=== PATIENT | male | born 1935 | race African-American/Black ===

== ENCOUNTER 2018-04-08 17:11 | Inpatient (IN) | payer MEDICARE, MEDICAID ==
--- NOTE | 2018-04-08 18:15 | PDOC.FPRHP ---
- History of Present Illness Chief Complaint: SOB History of Present Illness: This is an 83 yo M here for a CC of SOB and cough. Patient was transferred from the [place] ER. Per ER notes, patient reports a 2 week hx of nasal congestion, bilateral ear congesttion, nonproductive cough, mild SOB. During exam here patient denies cough. Patient reports the SOB is both at rest and w/ exertion. Patient states the SOB has gotten progressively worse of the last couple of weeks. Patient states he has been unable to lie flat on his back. He has to sit up in order to sleep. Patient denies chest pain, palpitations, fever/chills, NVD, rash or other symptoms. Patient denies recent travel or sick contacts. Endorses chronic BLE edema, no new changes. ED Course: CXR showed RLL infiltrate, pleural fluid Pt given: lovenox 1mg/kg subcutaneous, rocephin 1 g IV, transdermal nitro, 500mg azithromycin, 40mg lasix IV, 2.5mg albuterol sulfate - Allergies/Adverse Reactions Allergies Allergy/AdvReac Type Severity Reaction Status Date / Time No Known Allergies Allergy Verified 07/07/16 17:16 - Home Medications Medication Instructions Recorded Confirmed Type Lisinopril 2.5 mg PO DAILY 12/31/15 07/07/16 History Aspirin [Aspirin Chewable Tablet] 81 mg PO DAILY #0 tab 01/01/16 07/07/16 Rx Carvedilol [Coreg] 3.125 mg PO BID-WM #0 tab 01/01/16 07/07/16 Rx Furosemide [Lasix] 20 mg PO DAILY #0 tab 01/01/16 07/07/16 Rx metFORMIN HCl 500 mg PO BID-WM #0 tab 01/01/16 07/07/16 Rx Ascorbic Acid [Vitamin C] 500 mg PO BID tab 07/06/16 07/07/16 Rx Ferrous Gluconate [Fergon] 324 mg PO BID-WM tab 07/06/16 07/07/16 Rx Pantoprazole [Protonix] 40 mg PO DAILY tab 07/06/16 07/07/16 Rx Tamsulosin HCl [Flomax] 0.4 mg PO QAM cap 07/06/16 07/07/16 Rx traMADol HCl [Ultram] 100 mg PO Q6HR tab 07/06/16 07/07/16 Rx - History PMHx: chronic back pain, DMII, HTN, CHF PSHx: cataract, hernia repair, right hip SX FHx: non contributory Social: drinks socially, denies drug or tobacco use; patient lives in an apartment by himself w/ HH - Review of Systems General: reports: fatigue. denies: fever/chills, weight/appetite/sleep changes , night sweats Eyes: denies: eye pain, vision changes ENT: reports: nasal congestion, rhinorrhea Respiratory: reports: cough, congestion, shortness of breath, exercise intolerance Cardiovascular: reports: edema, paroxysmal nocturnal dyspnea, orthopnea. denies : chest pain, palpitation Gastrointestinal: denies: nausea, vomiting, diarrhea, constipation, abdominal pain, GI bleeding Genitourinary: denies: incontinence, dysuria, polyuria Skin: denies: rashes, lesions Neurological: denies: weakness - Vital signs BP: 129/90 HR: 103 RR: 18 Tmax: 98 Pox: 98% on RA Wt: 107kg - Physical Exam Constitutional: NAD, awake, alert and oriented, well developed HEENT: normocephalic and atraumatic, PERRLA, EOMI, grossly normal vision, grossly normal hearing, MMM Neck: supple, FROM, no JVD Chest: no-tender to palpation, no lesions Heart: RRR, normal S1/S2, no murmurs/rubs/gallops, pulses present -Heart: 1+ BLE edema Lungs: CTAB, no respiratory distress, good air movement, no rales/rhonchi, no wheezing, no retractions Abdomen: soft, non-tender, bowel sounds present, no masses/distention Musculoskeletal: normal structure, normal tone, ROM grossly normal -Musculoskeletal: 1+ pitting edema to the shins bilaterally Neurological: no focal deficit Skin: no rash/lesions, capillary refill <2 seconds Psychiatric: normal mood and affect FMR H&P: Results - Labs Lab results: Laboratory Results - last 24 hr 04/08/18 04/08/18 18:02 18:02 CK-MB (CK-2) 1.7 Troponin I 0.057 H B-Natriuretic Peptide 2524.8 H - Radiology Interpretation Chest x-ray Status: report reviewed by me (right pleural fluid and basilar infiltrate, atherosclerosis, cardiomegaly) FMR H&P: A/P - Problem List (1) CKD (chronic kidney disease) stage 2, GFR 60-89 ml/min Current Visit: No Status: Acute Code(s): N18.2 - CHRONIC KIDNEY DISEASE, STAGE 2 (MILD) (2) Congestive heart failure Current Visit: No Status: Acute Code(s): I50.9 - HEART FAILURE, UNSPECIFIED (3) Diabetes mellitus Current Visit: No Status: Acute Code(s): E11.9 - TYPE 2 DIABETES MELLITUS WITHOUT COMPLICATIONS Qualifiers: Diabetes mellitus type: type 2 (4) HTN (hypertension) Current Visit: No Status: Acute Code(s): I10 - ESSENTIAL (PRIMARY) HYPERTENSION Qualifiers: Hypertension type: essential hypertension Qualified Code(s): I10 - Essential (primary) hypertension (5) Hip fracture, intertrochanteric Current Visit: No Status: Acute Code(s): S72.143A - DISPLACED INTERTROCHANTERIC FRACTURE OF UNSP FEMUR, INIT (6) Hyperlipidemia Current Visit: No Status: Acute Code(s): E78.5 - HYPERLIPIDEMIA, UNSPECIFIED (7) Elevated troponin Current Visit: Yes Status: Acute Code(s): R74.8 - ABNORMAL LEVELS OF OTHER SERUM ENZYMES (8) Elevated d-dimer Current Visit: Yes Status: Acute Code(s): R79.89 - OTHER SPECIFIED ABNORMAL FINDINGS OF BLOOD CHEMISTRY (9) Total bilirubin, elevated Current Visit: Yes Status: Acute Code(s): R17 - UNSPECIFIED JAUNDICE - Plan CHF exacerbation - BNP 2085.6; baseline 500-700 in Nov 2017 - CXR: right pleural fluid and basilar infiltrate, cardiomegaly and atherosclerosis - Echo in 12/2017 showed EF 10-15%, global hypokinesis, 2/3 diastolic dysfunction , dilated left ventricle and left atrium, mod MR, mild-mod TR, elevated right ventricular pressure - flu pending - Patient given dose of lasix at 1400; will give one time dose now; start PO lasix 04/09 - Strict I/Os, daily weights - Will restart home HF medications including PO lasix and beta pratibha Elevated troponin - trop 0.055, will continue to trend - EKG: nonspecific T wave changes - no active chest pain/palpitations Elevated Tbili - Will obtain direct bili - likely 2/2 hepatic congestion - Will check AM CMP Elevated D-Dimer - D-dimer 3.73 - given lovenox at the ED - Will hold off on imaging for now, if patient becomes tachycardic will consider CTA HFrEF, diastolic dysfunction, present on admission - see plan above DMII - aware, will restart home meds - mild SS; HH & CC diet - Diabetic education CKD stage II - BUN/Cr: 18/1.26, at baseline - Will continue to monitor HTN - aware, will restart home meds HLD - aware, restart home meds Hx of alcohol abuse - ASE protocol initiated DISPO: admit to tele, obs CODE: FULL vte: lovenox diet: CC/HH FMR H&P: Upper Level - Pertinent history 83 yo AAM with PMH known HFrEF (10-15%) with cor pulmonale, DM, HTN, hx EtOH abuse, and CKD2. Presents with 2 wk history of VIERA, cough, congestion, SOB, and orthopnea. Denied CP, fever/chills, or recent travel. States he has chronic leg swelling which has not recently worsened. Was seen in [place] [facility] before transferring to [facility] for admission. [place] [facility]: Labs, EKG, CXR, Therapeutic lovenox, Rocephin 1g, azithromycin 500 mg , Lasix 40 mg, albuterol neb, nitro paste. [facility] ER: BNP, repeat trop, - Pertinent findings Vitals: pulse 95-105, otherwise WNL GEN: NAD, A&Ox4 CV: Tachycardica, regular, no murmur Pulm: CTA-B, normal effort. Ext: 1+ pitting edema bilaterally, swelling equal to midtibia. Labs: D-dimer 3.73, BNP 2085, Trop 0.055, T. Bili 2.4, EKG: rate 102, sinus tachycardia, QTc 471, T-wave inversions V4-V6, occasional PVC on tele monitor. CXR: pulmonary vascular congestion TTE (December 2017) EF 10-15 %, right ventricle pressure 57 mmHg. - Plan Date/Time: 04/08/181813 I, Luis Hamm MD, have evaluated this patient and agree with findings/plan as outlined by internet programmer resident. Pertinent changes/additions are listed here. 1. Acute HFrEF exacerbation: Obs, tele, IV Lasix 40 mg BID, daily weights, strict I&O, consider cardiology consultation for AICD placement, fluid restrict 1500 mL/day. Add metolazone if not diuresing appropriately. Do not suspect pneumonia at this time. Trend troponin x3. 2. Elevated D-dimer: Low suspicion for PE at this time and has already receive 1 dose of therapeutic lovenox. If pulse dose not decreased with diuresis, will order CTA-chest PE protocol. 3. Elevated bilirubin: likely 2/2 hepatic congestion, check direct and total level. 4. HTN: home meds 5. DM: home meds, SSI, ACHS checks. 6. Alcohol abuse: denies daily usage and states he can go weeks without a drink. ASE protocol. Diet: HH, CC, fluid restriction 1500 mL/day PPx: lovenox CODE: FULL Discussed with Dr. Etienne. Addendum - Attending - Attending Attestation Date/Time: 04/08/18 [id number] I personally evaluated the patient and discussed the management with Dr. Mayers I agree with the History, Examination, Assessment and Plan documented above with any addition or exceptions noted below- 83 yo male with h/o DM, HTN, CHFrEF (EF=10-15%) and chronic back pain presented with a 2 week h/o progressive SOB and dry non-productive cough. Denies any chest pain, N/V, diaphoresis. (+)orthopnea (usually sleeps on 2 pillows now using 4 pillows). Denies any fever/chills. PMH/PSH/All/Meds reviewed and agree with resident's documentation. Afebrile VSS. Exam repeated by me and agree with resident's findings. Labs: WBC= 4.0, H/H=15.5/52.2, Rto=009, Na= 139, K=4.4, BUN/Cr=18/1.26 , Hzhg=742, LXL=6689, T bili=2.4, Trop I= 0.057 -> 0.070. CXR- right pleural effusion. EKG- NSR, nonspecific ST changes. A/P: 1) Acute on chronic systolic CHF exacerbation - Place in obs; received lasix in [place] [facility] and here and pt reports feeling much better. Continue coreg and lisinopril. 2) DM - monitor accuchecks. 3) HTN- stable; resume home meds.
[2018-04-08 18:54] LABS: CKMB 1.7 ng/mL (0-6.6)
[2018-04-08] MEDS ORDERED: Dextrose 5% in Water 1,000 ML IV PRN (19:17)
[2018-04-08] MEDS ORDERED: Ondansetron PF 4 MG/2 ML Vial IVP PRN (19:17)
[2018-04-08] MEDS ORDERED: Acetaminophen 650 MG Suppository PR PRN (19:17)
[2018-04-08] MEDS ORDERED: Acetaminophen 325 MG TAB PO PRN (19:17)
[2018-04-08] MEDS ORDERED: HumaLOG 300 UNITS/3 ML VIAL SC PRN (19:17)
[2018-04-08] MEDS ORDERED: Ondansetron ODT 4 MG TAB PO PRN (19:17)
[2018-04-08] MEDS ORDERED: Dextrose 50% Abboject 50 ML SYRINGE SLOW IVP PRN (19:17)
[2018-04-08] MEDS ORDERED: Labetalol HCl 100 MG/20 ML VIAL SLOW IVP PRN (19:42)
[2018-04-08] MEDS ORDERED: Furosemide 40 MG/4 ML VIAL SLOW IVP SCH (19:45)
[2018-04-08] MEDS ORDERED: Furosemide 40 MG/4 ML VIAL ONE (19:55)
[2018-04-08] MEDS ORDERED: Carvedilol 3.125 MG TAB PO SCH (20:00)
[2018-04-08 22:55] VITALS: BMI 26.2
[2018-04-09 03:01] LABS: #Basophils 0.1 thou/uL (0.0-0.2); #Lymphocytes 2.2 thou/uL (1.20-3.40); #Monocytes 0.8 thou/uL (0.11-0.59); #Neutrophils 2.3 thou/uL (1.40-6.50); %Basophils 1.2 % (0.0-1.0); %Eosinophils 0.7 % (0.0-10.0); %Monocytes 14.9 % (0.0-10.0); %Neutrophils 43.3 % (42.0-75.0); Hemoglobin 13.6 g/dL (14.0-18.0); Mean Corpuscular HGB CONC 31.9 g/dL (32.0-36.0); Mean Corpuscular Hemoglobin 24.6 pg (27.0-31.0); Mean Platelet Volume 8.5 fL (7.4-10.4); Platelet Count 151 thou/uL (130-400); RBC Distribution Width 14.7 % (11.5-14.5); Red Blood Cell (RBC) Count 5.55 mill/uL (4.70-6.10); White Blood Cell (WBC) Count 5.4 thou/uL (4.8-10.8)
[2018-04-09 03:31] LABS: ALT (SGPT) 8 U/L (8-55); AST (SGOT) 20 U/L (5-34); Albumin 3.3 g/dL (3.4-4.8); Alkaline Phosphatase 43 U/L (40-150); Anion Gap 14 mmol/L (10-20); BUN (Urea Nitrogen) 18 mg/dL (8.4-25.7); Bilirubin, Total 1.6 mg/dL (0.2-1.2); Calc. Creatinine Clearance 47 mL/min (70-130); Calcium 9.3 mg/dL (7.8-10.44); Carbon Dioxide 25 mmol/L (23-31); Chloride 103 mmol/L (98-107); Estimated GFR-MDRD 56; Globulin 4.3 g/dL (2.4-3.5); Glucose 122 mg/dL (83-110); Potassium 3.6 mmol/L (3.5-5.1); Protein, Total 7.6 g/dL (5.8-8.1); Sodium 138 mmol/L (136-145)
--- NOTE | 2018-04-09 06:33 | PDOC.FM ---
- Subjective Subjective: Mr. Joseph is resting comfortably in bed, he denies SOB or CP. He reports that his legs are frequently swollen and that he regularly stops taking his medications. - Objective Vital Signs & Weight: Vital Signs (12 hours) Temp Pulse Resp BP Pulse Ox 04/09/18 03:32 98.4 F 84 16 116/75 98 04/08/18 22:46 98.2 F 105 H 16 131/87 100 04/08/18 22:10 97.8 F 100 12 132/99 H 97 04/08/18 20:20 97.7 F 103 H 16 145/94 H 97 Weight Weight 86.319 kg I&O: 04/07/18 04/08/18 04/09/18 06:59 06:59 06:59 Output Total 1525 Balance -1525 Result Diagrams: 04/09/18 02:54 04/09/18 02:54 Phys Exam - Physical Examination Constitutional: NAD HEENT: moist MMs Neck: no nodes, no JVD Respiratory: no wheezing, no rales, no rhonchi Cardiovascular: no significant murmur (irregularly irregular rhythm ) Musculoskeletal: pulses present, edema present Neurological: normal sensation, moves all 4 limbs Psychiatric: normal affect Dx/Plan (1) Elevated d-dimer Code(s): R79.89 - OTHER SPECIFIED ABNORMAL FINDINGS OF BLOOD CHEMISTRY Status : Acute (2) Elevated troponin Code(s): R74.8 - ABNORMAL LEVELS OF OTHER SERUM ENZYMES Status: Acute (3) Total bilirubin, elevated Code(s): R17 - UNSPECIFIED JAUNDICE Status: Acute (4) CKD (chronic kidney disease) stage 2, GFR 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 ml/min Code(s): N18.2 - CHRONIC KIDNEY DISEASE, STAGE 2 (MILD) Status: Acute (5) Congestive heart failure Code(s): I50.9 - HEART FAILURE, UNSPECIFIED Status: Acute (6) Diabetes mellitus Code(s): E11.9 - TYPE 2 DIABETES MELLITUS WITHOUT COMPLICATIONS Status: Acute Qualifiers: Diabetes mellitus type: type 2 (7) HTN (hypertension) Code(s): I10 - ESSENTIAL (PRIMARY) HYPERTENSION Status: Acute Qualifiers: Hypertension type: essential hypertension Qualified Code(s): I10 - Essential (primary) hypertension (8) Hyperlipidemia Code(s): E78.5 - HYPERLIPIDEMIA, UNSPECIFIED Status: Acute - Plan Plan: CHF exacerbation - BNP 2085.6; baseline 500-700 in Nov 2017 - CXR: right pleural fluid and basilar infiltrate, cardiomegaly and atherosclerosis - Echo in 12/2017 showed EF 10-15%, global hypokinesis, 2/3 diastolic dysfunction , dilated left ventricle and left atrium, mod MR, mild-mod TR, elevated right ventricular pressure - consider cardiology consult/poss AICD placement - s/p lasix IVPBx2, -1500ml since admission - Strict I/Os, daily weights - restart home HF medications including PO lasix and beta pratibha Elevated troponin - trop 0.055-->.070-->.100, most likely 2/2 increased heart strain - tx lovenox given in ED - EKG: nonspecific T wave changes - no active chest pain/palpitations Elevated Tbili - direct bili also elevated - likely 2/2 hepatic congestion - monitor AM CMP Elevated D-Dimer - D-dimer 3.73 - given tx ovenox at the ED - Will hold off on imaging for now, if patient becomes tachycardic will consider CTA HFrEF, diastolic dysfunction, present on admission - see plan above DMII - aware, will restart home meds - mild SS; HH & CC diet - Diabetic education CKD stage II - BUN/Cr at baseline - Will continue to monitor HTN - aware, will restart home meds HLD - aware, restart home meds Hx of alcohol abuse - ASE protocol initiated DISPO: monitor fluid status CODE: FULL vte: lovenox diet: CC/HH Addendum - Attending - Attending Attestation Date/Time: 04/09/18 1043 I personally evaluated the patient and discussed the management with Dr. Vaca. I agree with the History, Examination, Assessment and Plan documented above with any addition or exceptions noted below. The patient has a reduced EF. Is he open to aicd placement. Will consult cardiology.
[2018-04-09 07:02] LABS: CKMB 1.7 ng/mL (0-6.6)
[2018-04-09] MEDS: Furosemide 40 MG TAB PO SCH (08:53)
[2018-04-09] MEDS: Lisinopril 5 MG TAB PO SCH (08:53)
[2018-04-09] MEDS: Carvedilol 3.125 MG TAB PO SCH ×2 (08:53→16:50)
[2018-04-09] MEDS: Enoxaparin Sodium 40 MG/0.4 ML SYRINGE SC SCH (08:54)
[2018-04-09] MEDS ORDERED: Prevnar 13-Val Conj/PF 0.5 ML SYRINGE IM ONE (09:00)
--- NOTE | 2018-04-09 22:57 | CON ---
DATE OF CONSULTATION: HISTORY OF PRESENT ILLNESS: Liam Joseph is an 83-year-old black male with history of cardiomyopathy. In December 2015, an echocardiogram revealed ejection fraction of 15% to 20%. He was seen by Dr. Mehta during that admission. He never did undergo cardiac catheterization during that admission and the decision was made to treat him medically. He also never returned to the office for followup with Dr. Mehta. Another echocardiogram was performed as an outpatient in December 2017, which revealed an ejection fraction of 10% to 15%. He now is admitted with increased shortness of breath, increased peripheral edema. He has orthopnea and PND. He freely admits that he does not take his medications properly. He denies any chest discomfort. PAST MEDICAL HISTORY: Cardiomyopathy of uncertain etiology, hypertension, diabetes, and hypercholesterolemia. MEDICATIONS: At home include: 1. Carvedilol 3.125 b.i.d. 2. Lisinopril 2.5 daily. 3. Aspirin 81 daily. 4. Furosemide 20 mg daily. 5. Metformin 500 b.i.d. 6. Vitamin C 500 b.i.d. 7. Ferrous gluconate 324 b.i.d. 8. Protonix 40 daily. 9. Flomax 0.4 daily. 10. Tramadol. ALLERGIES: NONE. OPERATIONS: Cataract surgery, right hip surgery, and hernia repair. SOCIAL HISTORY: He does not smoke. He occasionally drinks. FAMILY HISTORY: Unremarkable. REVIEW OF SYSTEMS: A 12-point review of systems is otherwise unremarkable. PHYSICAL EXAMINATION: VITAL SIGNS: Blood pressure 122/78, pulse of 90. HEENT: PERRL. NECK: Supple. CHEST: Clear. CARDIAC: S1 and S2 normal without any S3, S4, or murmurs. ABDOMEN: Normal bowel sounds without any tenderness or organomegaly. EXTREMITIES: Reveals 1+ pretibial edema. NEUROLOGICAL: Grossly intact. SKIN: Warm and dry. LABORATORY DATA: EKG from [facility] revealed normal sinus rhythm with lateral T-wave changes. Echocardiogram today revealed an ejection fraction of 15% to 20 % with severe mitral regurgitation, [id number] tricuspid regurgitation. Troponin I 0.090 and 0.100. Sodium 135, potassium 3.6, chloride 103, carbon dioxide 25, BUN 18, creatinine 1.45. BNP 2524.8. Hemoglobin 13.6, hematocrit 42.7, white count 5400, and platelets 151,000. IMPRESSION: 1. Dilated cardiomyopathy of uncertain etiology. 2. Hypertension. 3. Diabetes. 4. Hypercholesterolemia. 5. Noncompliance with medications. 6. Chronic kidney disease. 7. Demand ischemia. PLAN: The patient will continue to be diuresed. He has had severe left ventricular dysfunction on echocardiograms since at least December 2015. He continues to have low ejection fraction at this time. He does admit that he does not take his medications properly. Electrophysiology will be consulted regarding possibility of defibrillator placement. Job ID: [id number] [facility] MED[facility] CENTERMaddie
--- NOTE | 2018-04-10 06:27 | PDOC.FM ---
- Subjective Subjective: Mr. Joseph is sitting up in bed, he has no SOB or CP. He says no one has told him anything and he wants to go home. - Objective Vital Signs & Weight: Vital Signs (12 hours) Temp Pulse Resp BP Pulse Ox 04/10/18 03:28 98.1 F 86 18 121/82 97 04/09/18 19:45 97.4 F L 93 20 126/87 92 L Weight Weight 88.405 kg I&O: 04/08/18 04/09/18 04/10/18 06:59 06:59 06:59 Intake Total 100 Output Total 1525 625 Balance -1525 -525 Result Diagrams: 04/10/18 06:56 04/10/18 06:56 Phys Exam - Physical Examination Constitutional: NAD HEENT: moist MMs, oral pharynx no lesions Neck: no JVD Respiratory: no wheezing, no rales, no rhonchi, clear to auscultation bilateral Cardiovascular: RRR Musculoskeletal: no edema, pulses present Neurological: moves all 4 limbs Psychiatric: normal affect Skin: no rash Dx/Plan (1) Elevated d-dimer Code(s): R79.89 - OTHER SPECIFIED ABNORMAL FINDINGS OF BLOOD CHEMISTRY Status : Acute (2) Elevated troponin Code(s): R74.8 - ABNORMAL LEVELS OF OTHER SERUM ENZYMES Status: Acute (3) Total bilirubin, elevated Code(s): R17 - UNSPECIFIED JAUNDICE Status: Acute (4) CKD (chronic kidney disease) stage 2, GFR 60-89 ml/min Code(s): N18.2 - CHRONIC KIDNEY DISEASE, STAGE 2 (MILD) Status: Acute (5) Congestive heart failure Code(s): I50.9 - HEART FAILURE, UNSPECIFIED Status: Acute (6) Diabetes mellitus Code(s): E11.9 - TYPE 2 DIABETES MELLITUS WITHOUT COMPLICATIONS Status: Acute Qualifiers: Diabetes mellitus type: type 2 (7) HTN (hypertension) Code(s): I10 - ESSENTIAL (PRIMARY) HYPERTENSION Status: Acute Qualifiers: Hypertension type: essential hypertension Qualified Code(s): I10 - Essential (primary) hypertension (8) Hyperlipidemia Code(s): E78.5 - HYPERLIPIDEMIA, UNSPECIFIED Status: Acute - Plan Plan: CHF exacerbation - BNP 2085.6 on admission; baseline 500-700 in Nov 2017 - CXR: right pleural fluid and basilar infiltrate, cardiomegaly and atherosclerosis - Repeat echo reveals EF of 15-20% - cardiology consulted appreciate recs - EP consulted for poss AICD placement - s/p lasix IVPBx2, -2L since admission - Strict I/Os, daily weights - restart home HF medications including PO lasix and beta pratibha Elevated troponin - downtrended, most likely 2/2 increased heart strain - tx lovenox given in ED - EKG: nonspecific T wave changes - no active chest pain/palpitations Elevated Tbili - direct bili also elevated - likely 2/2 hepatic congestion - monitor AM CMP Elevated D-Dimer - D-dimer 3.73 - given tx lovenox at the ED - Will hold off on imaging for now, if patient becomes tachycardic will consider CTA HFrEF, diastolic dysfunction, present on admission - see plan above DMII - aware, will restart home meds - mild SS; HH & CC diet - Diabetic education CKD stage II - BUN/Cr at baseline - Will continue to monitor HTN - aware, will restart home meds HLD - aware, restart home meds Hx of alcohol abuse - ASE protocol initiated DISPO: monitor fluid status CODE: FULL vte: lovenox diet: CC/HH Addendum - Attending - Attending Attestation Date/Time: 04/10/18 1384 I personally evaluated the patient and discussed the management with Dr. Vaca. I agree with the History, Examination, Assessment and Plan documented above with any addition or exceptions noted below. Pt seen by cardiology who does recommend aicd placement. Consult for EP has been placed. Pt is NPO.
[2018-04-10 07:35] LABS: ALT (SGPT) 11 U/L (8-55); AST (SGOT) 21 U/L (5-34); Albumin 3.3 g/dL (3.4-4.8); Alkaline Phosphatase 42 U/L (40-150); Anion Gap 14 mmol/L (10-20); BUN (Urea Nitrogen) 20 mg/dL (8.4-25.7); Bilirubin, Total 1.5 mg/dL (0.2-1.2); Calc. Creatinine Clearance 50 mL/min (70-130); Calcium 9.2 mg/dL (7.8-10.44); Carbon Dioxide 25 mmol/L (23-31); Chloride 105 mmol/L (98-107); Estimated GFR-MDRD 59; Globulin 4.1 g/dL (2.4-3.5); Glucose 113 mg/dL (83-110); Potassium 3.7 mmol/L (3.5-5.1); Protein, Total 7.4 g/dL (5.8-8.1); Sodium 140 mmol/L (136-145)
[2018-04-10 08:03] LABS: Hemoglobin A1c 6.7 % (4.0-6.0)
[2018-04-10 08:59] LABS: Band 1 % (5-11); Eosinophils 4 % (0-10); Lymphocytes 41 % (21-51); MDiff Complete? YES; Mean Corpuscular HGB CONC 32.4 g/dL (32.0-36.0); Mean Corpuscular Hemoglobin 25.2 pg (27.0-31.0); Mean Corpuscular Volume 77.9 fL (78.0-98.0); Mean Platelet Volume 8.9 fL (7.4-10.4); Microcytosis SLIGHT = 6-15 cells (100X) (0-5/hpf); Monocytes 9 % (0-10); Neutrophil 44 % (42-75); Platelet Count 142 thou/uL (130-400); Polychromasia MODERATE = 3-4 cells (100X) (0-2/hpf); RBC Distribution Width 14.8 % (11.5-14.5); Red Blood Cell (RBC) Count 5.53 mill/uL (4.70-6.10); Target Cells SLIGHT = 2-5 cells (100X) (0-1/hpf); White Blood Cell (WBC) Count 4.8 thou/uL (4.8-10.8)
[2018-04-10] MEDS: Carvedilol 3.125 MG TAB PO SCH ×3 (09:08→22:23)
[2018-04-10] MEDS: Furosemide 40 MG TAB PO SCH (09:08)
[2018-04-10] MEDS: Lisinopril 5 MG TAB PO SCH (09:08)
[2018-04-10] MEDS: Enoxaparin Sodium 40 MG/0.4 ML SYRINGE SC SCH ×2 (09:09→09:15)
--- NOTE | 2018-04-10 19:02 | CON ---
DATE OF CONSULTATION: 04/10/2018 ELECTROPHYSIOLOGY CONSULTATION REFERRING PHYSICIAN: Luis Ballesteros MD REASON FOR CONSULTATION: Cardiomyopathy and evaluation for potential ICD implants. HISTORY OF PRESENT ILLNESS: Mr. Joseph is an 83-year-old male with a history of cardiomyopathy was diagnosed in December of 2015 by echocardiogram, revealing severely reduced ejection fraction of 15% to 20% . This is all he was inpatient at [facility] and under the care of Dr. Mehta during that admission. The etiology of his cardiomyopathy was never truly discovered and no left heart catheterization was performed. The decision was made for medical management; although, he never returned for followup with Dr. Mehta. He had a repeat echocardiogram performed as an outpatient in December 2017 revealing ejection fraction of 10% to 15%. For this hospitalization, he was admitted for increasing shortness of breath and peripheral edema with orthopnea and paroxysmal nocturnal dyspnea. He has been very poor with medication compliance and with any type of outpatient followup. He denies any heart racing, palpitations, chest pain, pressure, syncope, near syncope, stroke, or stroke-like symptoms. As mentioned, positive for shortness of breath, orthopnea, swelling in the extremities, and increasing fatigue. REVIEW OF SYSTEMS: A 12-point review of systems is conducted, is negative except that listed above in HPI. PAST MEDICAL HISTORY: 1. Cardiomyopathy, etiology unknown, diagnosed in December 2015 as detailed above. 2. Hypertension. 3. Diabetes. 4. Hypercholesterolemia. ALLERGIES: NONE. HOME MEDICATIONS: Include: 1. Carvedilol 3.125 mg p.o. b.i.d. 2. Lisinopril 2.5 mg p.o. daily. 3. Aspirin 81 mg p.o. daily. 4. Furosemide 20 mg p.o. daily. 5. Metformin 500 mg p.o. b.i.d. 6. Vitamin C 500 mg p.o. b.i.d. 7. Iron b.i.d. 8. Protonix 40 mg daily. 9. Flomax 0.4 mg p.o. daily. 10. Tramadol. SOCIAL HISTORY: Negative for tobacco and drugs. Positive for rare alcohol consumption. FAMILY HISTORY: Negative for sudden cardiac or early-onset coronary artery disease. PHYSICAL EXAMINATION: VITAL SIGNS: Most recent vital signs; temperature 98 degrees Fahrenheit, pulse 82, blood pressure 124/85, respirations 16, and oxygen is 95% on room air. GENERAL: The patient is alert and oriented. Speech is clear. Affect is appropriate. HEENT: Normocephalic and atraumatic. Sclerae anicteric. EOMs are intact. Oral mucosa is moist and pink with adequate dentition. He is sitting upright in no apparent distress in the chair during the exam. NECK: Supple without jugular venous distention. Thyroid is not palpable. PULMONARY: Lungs are clear to auscultation bilaterally without wheezes, crackles, or rhonchi. Respirations are even and unlabored. CARDIOVASCULAR: Heart rate is irregularly irregular with crisp S1 and S2. PMI is nondisplaced. EXTREMITIES: Warm and dry to touch with trace edema to bilateral lower extremities. No clubbing or cyanosis appreciated. ABDOMEN: Benign. No masses palpable. Hepatojugular reflux is negative. NEUROLOGIC: Grossly intact and nonfocal. Gait was not assessed. DATABASE: Hematology was reviewed and unremarkable. Chemistry was reviewed; potassium 3.7, creatinine 1.4. A1c 6.7. ALT and AST are within normal limits. BNP was approximately 2500 on admission. Echocardiogram on 04/09/2018, ejection fraction 15% to 20%, severe mitral regurgitation, [id number] tricuspid regurgitation, left atrium was moderately dilated. Telemetry and EKG were all personally reviewed and reflect largely sinus rhythm with occasional ventricular ectopy and an episode of nonsustained ventricular tachycardia of 15 beats in duration. IMPRESSION: 1. Chronic systolic heart failure with severely reduced ejection fraction, questionably ischemic EF severely depressed at 15% to 20%. 2. Nonsustained ventricular tachycardia. RECOMMENDATIONS: Discussion was held with Mr. Joseph about implantable cardioverter defibrillators. With his long-standing history of cardiomyopathy and also his nonsustained ventricular tachycardia, he would likely benefit from an ICD implant. We discussed risks, benefits, and alternatives. decision making tool was used. Risks with single-chamber ICD implant include pain, bleeding, infection, and bruising at the implant site, pneumothorax, hemothorax, pericardial effusion, need for chest tube placement, and possible need for invasive CV surgery. The patient voices understanding and is willing to proceed. We will keep him n.p.o. after midnight for potential ICD implant early tomorrow morning, pending ship laborer availability, otherwise it will be afternoon. Thank you for allowing us to participate in the care of this patient. Job ID: [id number]
[2018-04-10] MEDS: Atorvastatin Calcium 40 MG TAB PO SCH (22:23)
--- NOTE | 2018-04-11 06:24 | PDOC.FM ---
- Subjective Subjective: Mr. Joseph is resting comfortably in bed. He denies SOB, CP or LE swelling. - Objective Vital Signs & Weight: Vital Signs (12 hours) Temp Pulse Resp BP BP Pulse Ox 04/11/18 03:44 97.6 F 82 18 127/85 95 04/11/18 00:13 97.4 F L 80 16 109/71 98 04/10/18 19:29 98.6 F 93 18 118/79 99 Weight Weight 87.906 kg I&O: 04/09/18 04/10/18 04/11/18 06:59 06:59 06:59 Intake Total 100 1140 Output Total 1525 625 Balance -1525 -525 1140 Result Diagrams: 04/11/18 06:30 04/11/18 06:29 Phys Exam - Physical Examination Constitutional: NAD HEENT: moist MMs Neck: no JVD Respiratory: no rhonchi, clear to auscultation bilateral Cardiovascular: RRR, no significant murmur Gastrointestinal: soft, no distention Musculoskeletal: no edema, pulses present Neurological: moves all 4 limbs Psychiatric: normal affect Dx/Plan (1) Elevated d-dimer Code(s): R79.89 - OTHER SPECIFIED ABNORMAL FINDINGS OF BLOOD CHEMISTRY Status : Acute (2) Elevated troponin Code(s): R74.8 - ABNORMAL LEVELS OF OTHER SERUM ENZYMES Status: Acute (3) Total bilirubin, elevated Code(s): R17 - UNSPECIFIED JAUNDICE Status: Acute (4) CKD (chronic kidney disease) stage 2, GFR 60-89 ml/min Code(s): N18.2 - CHRONIC KIDNEY DISEASE, STAGE 2 (MILD) Status: Acute (5) Congestive heart failure Code(s): I50.9 - HEART FAILURE, UNSPECIFIED Status: Acute (6) Diabetes mellitus Code(s): E11.9 - TYPE 2 DIABETES MELLITUS WITHOUT COMPLICATIONS Status: Acute Qualifiers: Diabetes mellitus type: type 2 (7) HTN (hypertension) Code(s): I10 - ESSENTIAL (PRIMARY) HYPERTENSION Status: Acute Qualifiers: Hypertension type: essential hypertension Qualified Code(s): I10 - Essential (primary) hypertension (8) Hyperlipidemia Code(s): E78.5 - HYPERLIPIDEMIA, UNSPECIFIED Status: Acute - Plan Plan: CHF exacerbation - BNP 2085.6 on admission; baseline 500-700 in Nov 2017 - CXR: right pleural fluid and basilar infiltrate, cardiomegaly and atherosclerosis - Repeat echo reveals EF of 15-20% - cardiology consulted appreciate recs - EP consulted for AICD placement, pt at risk for cardiac arrest considering severely decreased EF - s/p lasix IVPBx2, +1.4L 24hrs continue to monitor, fluid overloaded, consider IV lasix x1 in the afternoon - Strict I/Os, daily weights - restart home HF medications including PO lasix and beta pratibha Elevated troponin - downtrended, most likely 2/2 increased heart strain - tx lovenox given in ED - EKG: nonspecific T wave changes - no active chest pain/palpitations Elevated Tbili - direct bili also elevated - likely 2/2 hepatic congestion - monitor AM CMP Elevated D-Dimer - D-dimer 3.73 - given tx lovenox at the ED - Will hold off on imaging for now, if patient becomes tachycardic will consider CTA HFrEF, diastolic dysfunction, present on admission - see plan above DMII - aware, will restart home meds - mild SS; HH & CC diet - HbA1c 6.7% will begin metformin CKD stage II - BUN/Cr at baseline - Will continue to monitor HTN - aware, will restart home meds HLD - aware, considering other risk factors, high dose statin therapy is indicated - lipitor 40 mg Hx of alcohol abuse - ASE protocol initiated DISPO: continue to monitor fluid status, necessary inpt AICD placement d/t severe disease CODE: FULL vte: lovenox diet: CC/HH Addendum - Attending - Attending Attestation Date/Time: 04/11/18 1178 I personally evaluated the patient and discussed the management with Dr. Vaca. I agree with the History, Examination, Assessment and Plan documented above with any addition or exceptions noted below. The patient will have aicd tomorrow. Is fluid up today and will get a dose of IV lasix.
[2018-04-11 07:08] LABS: Hemoglobin 13.7 g/dL (14.0-18.0); Mean Corpuscular HGB CONC 31.3 g/dL (32.0-36.0); Mean Corpuscular Hemoglobin 24.2 pg (27.0-31.0); Mean Corpuscular Volume 77.5 fL (78.0-98.0); Mean Platelet Volume 8.9 fL (7.4-10.4); Platelet Count 154 thou/uL (130-400); RBC Distribution Width 14.5 % (11.5-14.5); Red Blood Cell (RBC) Count 5.63 mill/uL (4.70-6.10); White Blood Cell (WBC) Count 4.5 thou/uL (4.8-10.8)
[2018-04-11 07:17] LABS: ALT (SGPT) 9 U/L (8-55); AST (SGOT) 21 U/L (5-34); Albumin 3.2 g/dL (3.4-4.8); Alkaline Phosphatase 40 U/L (40-150); Anion Gap 15 mmol/L (10-20); BUN (Urea Nitrogen) 20 mg/dL (8.4-25.7); Bilirubin, Total 1.4 mg/dL (0.2-1.2); Calc. Creatinine Clearance 51 mL/min (70-130); Calcium 9.2 mg/dL (7.8-10.44); Carbon Dioxide 24 mmol/L (23-31); Cardiac Risk 3.9 (Less than 4.5); Chloride 104 mmol/L (98-107); Cholesterol 120 mg/dl (< 200 Desired); Estimated GFR-MDRD 61; Globulin 4.1 g/dL (2.4-3.5); Glucose 121 mg/dL (83-110); HDL Cholesterol 31 mg/dL (>60 Neg Risk); LDL Cholesterol, Calculated 75 mg/dL; Potassium 3.5 mmol/L (3.5-5.1); Protein, Total 7.3 g/dL (5.8-8.1); Sodium 139 mmol/L (136-145); Triglycerides 68 mg/dL (Less than 150)
[2018-04-11 08:10] LABS: Band 2 % (5-11); Eosinophils 3 % (0-10); Hypochromia SLIGHT = 6-15 cells (100X) (0-5/hpf); Lymphocytes 43 % (21-51); MDiff Complete? YES; Microcytosis SLIGHT = 6-15 cells (100X) (0-5/hpf); Monocytes 14 % (0-10); Neutrophil 34 % (42-75); Platelet Morphology Comment Appears Adequate; Polychromasia SLIGHT = 2-3 cells (100X) (0-2/hpf); Reactive Lymphocytes 4 % (0-10)
--- NOTE | 2018-04-11 08:31 | PDOC.CTH ---
Cardiology Progress Note - Subjective EP PROGRESS NOTE:04/11/18 Seen as follow up for cardomyopathy and possible ICD. Feeling better today. Breathing easier. Still has some orthopnea. - Objective Vital Signs Temp Pulse Resp BP Pulse Ox 04/11/18 03:44 97.6 F 82 18 127/85 95 04/11/18 00:13 97.4 F L 80 16 109/71 98 Weight 193 lb 12.8 oz 04/10/18 04/11/18 04/12/18 06:59 06:59 06:59 Intake Total 100 1140 Output Total 625 Balance -525 1140 - Physical Examination General/Neuro: alert & oriented x3, NAD Neck: carotid US brisk, no JVD present Lungs: CTA, unlabored respirations Heart: PMI normal, RRR Abdomen: NT/ND, soft - Telemetry Telemetry Rhythm: SR - Labs Result Diagrams: 04/11/18 06:30 04/11/18 06:29 Troponin/CKMB CK-MB (CK-2) 1.7 ng/mL (0-6.6) 04/09/18 06:05 Troponin I 0.090 ng/mL (< 0.028) H 04/09/18 06:05 - Assessment/Plan 1. Cardiomyopathy - possibly ischemic. -LVEF 15-20% -continue to diurese. better compensated today. 2. Non sustained ventricular tachycardia 3. Medication non compliance NPO after midnight for ICD implant tomorrow.
[2018-04-11] MEDS: Lisinopril 5 MG TAB PO SCH (09:49)
[2018-04-11] MEDS: metFORMIN 500 MG TAB PO SCH (09:49)
[2018-04-11] MEDS: Furosemide 40 MG TAB PO SCH (09:49)
[2018-04-11] MEDS: Carvedilol 3.125 MG TAB PO SCH ×2 (09:50→15:27)
[2018-04-11] MEDS: Enoxaparin Sodium 40 MG/0.4 ML SYRINGE SC SCH (09:51)
[2018-04-11] MEDS ORDERED: Furosemide 20 MG/2 ML VIAL SLOW IVP SCH (12:00)
[2018-04-11] MEDS ORDERED: Iopamidol 370 76% 50 ML VIAL FS ONE (13:11)
[2018-04-11] MEDS ORDERED: Carvedilol 6.25 MG TAB PO SCH (15:00)
[2018-04-11] MEDS ORDERED: CEFAZOLIN 1 GM VIAL ONE (15:12)
[2018-04-11] MEDS ORDERED: PHENYLEPHRINE-NS 100 MCG/ML 10 ML SYRINGE ONE (15:19)
[2018-04-11] MEDS ORDERED: PROPOFOL 200 MG/20 ML VIAL ONE (15:19)
[2018-04-11] MEDS ORDERED: Fentanyl 100 MCG/2 ML VIAL ONE (15:22)
[2018-04-11] MEDS ORDERED: Phenylephrine HCL 10 MG/ML VIAL ONE (15:23)
[2018-04-11] MEDS ORDERED: Propofol 500 MG/50 ML VIAL ONE (15:40)
[2018-04-11] MEDS ORDERED: Lidocaine 2% Jelly 5 ML TUBE ONE (15:51)
[2018-04-11] MEDS ORDERED: Lidocaine 1% (PF) 30 ML VIAL ONE (16:37)
[2018-04-11] MEDS ORDERED: Acetaminophen/Codeine 30-300mg Tablet PO PRN ×2 (18:15)
[2018-04-11] MEDS: Atorvastatin Calcium 40 MG TAB PO SCH (20:47)
[2018-04-12 05:55] LABS: #Eosinphils 0.1 thou/uL (0.0-0.7); #Lymphocytes 2.2 thou/uL (1.20-3.40); #Monocytes 0.9 thou/uL (0.11-0.59); #Neutrophils 3.8 thou/uL (1.40-6.50); %Basophils 0.4 % (0.0-1.0); %Eosinophils 1.1 % (0.0-10.0); %Lymphocytes 31.2 % (21.0-51.0); %Monocytes 13.1 % (0.0-10.0); %Neutrophils 54.1 % (42.0-75.0); Hemoglobin 14.4 g/dL (14.0-18.0); Mean Corpuscular HGB CONC 30.7 g/dL (32.0-36.0); Mean Corpuscular Volume 78.1 fL (78.0-98.0); Platelet Count 160 thou/uL (130-400); RBC Distribution Width 14.5 % (11.5-14.5)
--- NOTE | 2018-04-12 06:19 | PDOC.FM ---
- Subjective Subjective: Mr. Joseph is resting comfortably in bed, denies SOB or LE swelling - Objective Vital Signs & Weight: Vital Signs (12 hours) Temp Pulse Resp BP Pulse Ox 04/12/18 03:59 97.8 F 88 16 118/75 99 04/11/18 19:13 97.6 F 82 12 120/77 97 Weight Weight 92.941 kg I&O: 04/10/18 04/11/18 04/12/18 06:59 06:59 06:59 Intake Total 100 1140 1140 Output Total 625 525 Balance -525 1140 615 Result Diagrams: 04/12/18 05:15 04/12/18 05:15 Phys Exam - Physical Examination Constitutional: NAD HEENT: moist MMs Neck: no JVD Respiratory: clear to auscultation bilateral Cardiovascular: RRR, no significant murmur Gastrointestinal: soft, non-tender Musculoskeletal: no edema, pulses present Neurological: non-focal, moves all 4 limbs Psychiatric: normal affect Skin: no rash Dx/Plan (1) Elevated d-dimer Code(s): R79.89 - OTHER SPECIFIED ABNORMAL FINDINGS OF BLOOD CHEMISTRY Status : Acute (2) Elevated troponin Code(s): R74.8 - ABNORMAL LEVELS OF OTHER SERUM ENZYMES Status: Acute (3) Total bilirubin, elevated Code(s): R17 - UNSPECIFIED JAUNDICE Status: Acute (4) CKD (chronic kidney disease) stage 2, GFR 60-89 ml/min Code(s): N18.2 - CHRONIC KIDNEY DISEASE, STAGE 2 (MILD) Status: Acute (5) Congestive heart failure Code(s): I50.9 - HEART FAILURE, UNSPECIFIED Status: Acute (6) Diabetes mellitus Code(s): E11.9 - TYPE 2 DIABETES MELLITUS WITHOUT COMPLICATIONS Status: Acute Qualifiers: Diabetes mellitus type: type 2 (7) HTN (hypertension) Code(s): I10 - ESSENTIAL (PRIMARY) HYPERTENSION Status: Acute Qualifiers: Hypertension type: essential hypertension Qualified Code(s): I10 - Essential (primary) hypertension (8) Hyperlipidemia Code(s): E78.5 - HYPERLIPIDEMIA, UNSPECIFIED Status: Acute - Plan Plan: CHF exacerbation - BNP 2085.6 on admission; baseline 500-700 in Nov 2017 - CXR: right pleural fluid and basilar infiltrate, cardiomegaly and atherosclerosis - Repeat echo reveals EF of 15-20% - cardiology consulted appreciate recs - EP consulted for AICD placement, pt at risk for cardiac arrest considering severely decreased EF - per IOs and weight, seems to have a positive fluid balance, asymptomatic. will confirm with nursing - Strict I/Os, daily weights - restart home HF medications including PO lasix and beta pratibha Elevated troponin - downtrended, most likely 2/2 increased heart strain - tx lovenox given in ED - EKG: nonspecific T wave changes - no active chest pain/palpitations Elevated Tbili - direct bili also elevated - likely 2/2 hepatic congestion - monitor AM CMP Elevated D-Dimer - D-dimer 3.73 - given tx lovenox at the ED - Will hold off on imaging for now, if patient becomes tachycardic will consider CTA HFrEF, diastolic dysfunction, present on admission - see plan above DMII - aware, will restart home meds - mild SS; HH & CC diet - HbA1c 6.7% will begin metformin CKD stage II - BUN/Cr at baseline - Will continue to monitor HTN - aware, will restart home meds HLD - aware, considering other risk factors, high dose statin therapy is indicated - lipitor 40 mg Hx of alcohol abuse - ASE protocol initiated DISPO: continue to monitor fluid status, necessary inpt AICD placement d/t severe disease CODE: FULL vte: lovenox diet: CC/HH Addendum - Attending - Attending Attestation Date/Time: 04/12/18 2874 I personally evaluated the patient and discussed the management with Dr. Vaca. I agree with the History, Examination, Assessment and Plan documented above with any addition or exceptions noted below. The patient was seen sitting up in a chair. He denies pain from aicd. Will d/ c home on keflex per Dr. Hurt's recommendations.
[2018-04-12 06:34] LABS: Anion Gap 16 mmol/L (10-20); BUN (Urea Nitrogen) 21 mg/dL (8.4-25.7); Calc. Creatinine Clearance 53 mL/min (70-130); Calcium 9.5 mg/dL (7.8-10.44); Carbon Dioxide 24 mmol/L (23-31); Chloride 103 mmol/L (98-107); Estimated GFR-MDRD 60; Glucose 114 mg/dL (83-110); Potassium 3.7 mmol/L (3.5-5.1); Sodium 139 mmol/L (136-145)
[2018-04-12] MEDS ORDERED: Carvedilol 6.25 MG TAB PO SCH (08:00)
--- NOTE | 2018-04-12 08:24 | RAD ---
CHEST 1 VIEW: Date: 04/12/18 INDICATION: Status post pacemaker placement. COMPARISON: 04/08/18. FINDINGS: Small right pleural effusion has resolved. Cardiomegaly is slightly improved. Pulmonary vascular kane estion is also improved. There is a new AICD overlying the left chest wall. No pneumothorax is demons trated. No acute osseous abnormality is noted. IMPRESSION: 1. Improvement in the pleural effusion and central pulmonary edema pattern. There is also mild impro vement in cardiomegaly. 2. New AICD with lead projecting in the expected position. 3. No pneumothorax. POS: [facility]
[2018-04-12] MEDS: Furosemide 40 MG TAB PO SCH (08:58)
[2018-04-12] MEDS: Lisinopril 5 MG TAB PO SCH (08:58)
[2018-04-12] MEDS: metFORMIN 500 MG TAB PO SCH (08:58)
[2018-04-12] MEDS: Enoxaparin Sodium 40 MG/0.4 ML SYRINGE SC SCH (08:59)
[2018-04-12 12:01] VITALS: BP 116/80; TEMP 97.4
--- NOTE | 2018-04-16 05:37 | DIS ---
DATE OF ADMISSION: 04/11/2018 DATE OF DISCHARGE: 04/12/2018 RESIDENT: Dr. Sebastian Vaca ADMITTING ATTENDING: Edie Etienne MD DISCHARGE ATTENDING: Yesenia Burns MD CONSULTS: 1. Cardiology: Dr. Luis Ballesteros. 2. Electrophysiology, Dr. Adrian Hurt. PROCEDURE: AICD placement. IMAGING: Echocardiogram, significant for left ventricular ejection fraction of 15% to 20%. PRIMARY DIAGNOSIS: Congestive heart failure exacerbation. SECONDARY DIAGNOSES: 1. Demand ischemia. 2. Elevated total bilirubin. 3. Elevated D-dimer. 4. Chronic heart failure with reduced ejection fraction. 5. Diabetes mellitus, type 2. 6. Chronic kidney disease, stage 2. 7. Hypertension. 8. Hyperlipidemia. 9. History of alcohol abuse. DISCHARGE MEDICATIONS: 1. Aspirin 81 mg p.o. daily. 2. Atorvastatin 40 mg p.o. at bedtime. 3. Coreg 6.25 mg p.o. b.i.d. with meals. 4. Keflex 500 mg p.o. t.i.d. for 7 days. 5. Lasix 40 mg p.o. daily. 6. Lisinopril 5 mg p.o. daily. 7. Metformin 500 mg p.o. q.8 with meals. Discontinued medications: 1. Lasix 20 mg daily p.r.n. 2. Carvedilol 3.125 mg p.o. b.i.d. with meals. HISTORY OF PRESENT ILLNESS AND HOSPITAL COURSE: Mr. Joseph is an 83-year-old male, here for a chief complaint of cough. Patient was transferred from the ER. ER notes that he had two weeks of nasal congestion bilaterally shortness of breath. During these events, the patient denies cough. The patient reports being noncompliance with home medications and not taking it because he started feeling better. The patient was given 40 mg of IV Lasix in the ED and continued to diurese well with scheduled 40 mg p.o. Lasix. Echocardiogram was performed, noted to have severely depressed ejection fraction concerning for lethal cardiac arrest. He is discharged with this ejection fraction. Cardiology was consulted and recommended EP consult for AICD placement in the inpatient setting due to increased risk factors for discharge without AICD placed. This was completed on hospital day 3. The patient tolerated the procedure well, remained stable, and continue to remain euvolemic and asymptomatic for congestive heart failure type symptoms. DISPOSITION: Stable. DISCHARGE INSTRUCTIONS: 1. Location: Home. 2. Diet: Heart healthy, low sodium. 3. Activity: As tolerated. 4. Followup: Follow up with PCP in 7 days, and Cardiology, Dr. Luis Ballesteros in3 to 4 weeks. Job ID: [id number]
== END 2018-04-12 16:25 | disposition home health service (06) | DRG 226 ==
LOC: ERS 17:11 → ERHOLD 19:00 → 2SW 19:45 → OBSVTOIN 04-11 07:02
PROVIDERS: ADMIT Family Medicine; ATTEND Family Medicine
PROC: 0JH608Z Insertion of Defibrillator Generator into Chest Subcutaneous Tissue and Fascia, Open Approach (ICD-10-PCS; principal; 2018-04-11)
PROC: 02HK3KZ Insertion of Defibrillator Lead into Right Ventricle, Percutaneous Approach (ICD-10-PCS; 2018-04-11)
DX: I13.0 Hypertensive heart and chronic kidney disease with heart failure and stage 1 through stage 4 chronic kidney disease, or unspecified chronic kidney disease (principal); I50.23 Acute on chronic systolic (congestive) heart failure; R17 Unspecified jaundice; I47.2 Ventricular tachycardia; I24.8 Other forms of acute ischemic heart disease; M54.9 Dorsalgia, unspecified; G89.29 Other chronic pain; E11.22 Type 2 diabetes mellitus with diabetic chronic kidney disease; N18.2 Chronic kidney disease, stage 2 (mild); R79.89 Other specified abnormal findings of blood chemistry; F10.10 Alcohol abuse, uncomplicated; I27.81 Cor pulmonale (chronic); I42.0 Dilated cardiomyopathy; Z79.82 Long term (current) use of aspirin; Z79.84 Long term (current) use of oral hypoglycemic drugs; Z91.14 Patient's other noncompliance with medication regimen
CPT/HCPCS: 33249; 36005; 36415; 36416; 71045; 75820; 80048; 80053; 80061; 82248; 82553; 83036; 83880; 84145; 84484; 85025; 87804; 90471; 90662; 90670; 93306; 93641; 93798; 99285; C1722; C1777; G0008; G0009; J0690; J1650; J1940; J2001; J2370; J2704; J3010; J3490

== ENCOUNTER 2024-05-11 00:38 | Inpatient (IN) | payer OTHER, MEDICAID ==
[2024-05-11] MEDS ORDERED: Dextrose 5% in Water 1,000 ML IV PRN (01:57)
[2024-05-11] MEDS ORDERED: Dextrose 50% Abboject 50 ML SYRINGE SLOW IVP PRN (01:57)
[2024-05-11] MEDS ORDERED: Insulin Lispro 100 UNIT/ML 10 ML VIAL SC PRN ×2 (01:57)
[2024-05-11] MEDS ORDERED: Glucagon 1 MG/ML KIT IM PRN (01:57)
[2024-05-11] MEDS: Lactated Ringer's 1,000 ML IV SCH ×2 (02:15→13:39)
[2024-05-11 03:49] LABS: #Basophils Less than 0.03 10x3/uL (0.0-0.2); %Basophils 0.3 % (0.0-1.0); %Eosinophils 0.4 % (0.0-10.0); %Lymphocytes 20.5 % (21.0-51.0); %Monocytes 12.3 % (0.0-10.0); %Neutrophils 66.1 % (42.0-75.0); Hematocrit 31.4 % (42.0-52.0); Hemoglobin 10.1 g/dL (14.0-18.0); Mean Corpuscular HGB CONC 32.2 g/dL (32.0-36.0); Mean Corpuscular Hemoglobin 24.2 pg (27.0-31.0); Mean Corpuscular Volume 75.3 fL (78.0-98.0); Mean Platelet Volume 9.3 fL (7.4-10.4); Platelet Count 139 10x3/uL (130-400); RBC Distribution Width 15.2 % (11.5-14.5); Red Blood Cell (RBC) Count 4.17 mill/uL (4.70-6.10)
[2024-05-11 04:32] LABS: Iron 23 ug/dL (65-175); Iron Binding Capacity, Total 139 mcg/dL (261-462)
[2024-05-11 04:33] LABS: Anion Gap 16 mmol/L (10-20); BUN (Urea Nitrogen) 24 mg/dL (8.4-25.7); Calc. Creatinine Clearance 0 mL/min (70-130); Carbon Dioxide 15 mmol/L (23-31); Chloride 112 mmol/L (98-107); Estimated GFR 46; Glucose 77 mg/dL (83-110); Iron 25 ug/dL (65-175); Iron Binding Capacity, Total 139 mcg/dL (261-462); Potassium 4.3 mmol/L (3.5-5.1); Sodium 139 mmol/L (136-145); Transferrin, Serum 111 mg/dL (163-344)
[2024-05-11 05:06] VITALS: BMI 19.3
[2024-05-11] MEDS: Enoxaparin 40 MG (0.4 mL) SYRINGE SC SCH (08:20)
[2024-05-11] MEDS: Ferrous Sulfate 325 MG TAB PO SCH (08:20)
[2024-05-11] MEDS: FLU (Fluad Triv) TS24-25 (65UP)/MF59C/PF 45 MCG/0.5 ML Syringe IM ONE (08:25)
[2024-05-11] MEDS: cefTRIAXone\\ROCEPHIN 1 GM in Sodium Chloride 0.9% 100 ML IVPB SCH (17:00)
[2024-05-12 04:15] LABS: #Basophils Less than 0.03 10x3/uL (0.0-0.2); %Basophils 0.3 % (0.0-1.0); %Eosinophils 0.5 % (0.0-10.0); %Lymphocytes 28.3 % (21.0-51.0); %Neutrophils 57.4 % (42.0-75.0); Hematocrit 29.8 % (42.0-52.0); Hemoglobin 9.7 g/dL (14.0-18.0); Mean Corpuscular HGB CONC 32.6 g/dL (32.0-36.0); Mean Corpuscular Hemoglobin 24.7 pg (27.0-31.0); Mean Corpuscular Volume 75.8 fL (78.0-98.0); Mean Platelet Volume 10.2 fL (7.4-10.4); Platelet Count 172 10x3/uL (130-400); RBC Distribution Width 14.9 % (11.5-14.5); Red Blood Cell (RBC) Count 3.93 mill/uL (4.70-6.10)
[2024-05-12 04:42] LABS: Anion Gap 14 mmol/L (10-20); BUN (Urea Nitrogen) 23 mg/dL (8.4-25.7); Calc. Creatinine Clearance 34 mL/min (70-130); Carbon Dioxide 20 mmol/L (23-31); Chloride 111 mmol/L (98-107); Estimated GFR 52; Glucose 82 mg/dL (83-110); Potassium 4.1 mmol/L (3.5-5.1); Sodium 141 mmol/L (136-145)
[2024-05-12] MEDS: Aspirin Chewable 81 MG TAB PO SCH (09:12)
[2024-05-12] MEDS: Atorvastatin Calcium 40 MG TAB PO SCH (09:13)
[2024-05-12] MEDS: Famotidine 20 MG TAB PO SCH (09:13)
[2024-05-13 06:17] LABS: #Basophils Less than 0.03 10x3/uL (0.0-0.2); %Basophils 0.2 % (0.0-1.0); %Eosinophils 1.1 % (0.0-10.0); %Lymphocytes 29.5 % (21.0-51.0); %Monocytes 13.6 % (0.0-10.0); Hematocrit 28.6 % (42.0-52.0); Hemoglobin 9.5 g/dL (14.0-18.0); Mean Corpuscular HGB CONC 33.2 g/dL (32.0-36.0); Mean Corpuscular Hemoglobin 24.7 pg (27.0-31.0); Mean Corpuscular Volume 74.3 fL (78.0-98.0); Mean Platelet Volume 9.5 fL (7.4-10.4); Platelet Count 165 10x3/uL (130-400); RBC Distribution Width 14.8 % (11.5-14.5); Red Blood Cell (RBC) Count 3.85 mill/uL (4.70-6.10)
[2024-05-13 06:39] LABS: Anion Gap 12 mmol/L (10-20); BUN (Urea Nitrogen) 19 mg/dL (8.4-25.7); Calc. Creatinine Clearance 34 mL/min (70-130); Calcium 8.6 mg/dL (7.8-10.44); Carbon Dioxide 21 mmol/L (23-31); Chloride 112 mmol/L (98-107); Estimated GFR 52; Glucose 84 mg/dL (83-110); Potassium 3.8 mmol/L (3.5-5.1); Sodium 141 mmol/L (136-145)
[2024-05-13] MEDS: Acetaminophen 325 MG TAB PO PRN (09:10)
[2024-05-13] MEDS: Amoxicillin/Potassium Clav 875 MG TAB PO SCH (20:25)
[2024-05-13] MEDS ORDERED: Cefpodoxime 200 MG TAB PO SCH (21:00)
[2024-05-14 04:57] LABS: #Basophils Less than 0.03 10x3/uL (0.0-0.2); %Basophils 0.4 % (0.0-1.0); %Eosinophils 1.4 % (0.0-10.0); %Lymphocytes 31.8 % (21.0-51.0); %Monocytes 12.3 % (0.0-10.0); %Neutrophils 53.9 % (42.0-75.0); Hemoglobin 9.2 g/dL (14.0-18.0); Mean Corpuscular HGB CONC 32.9 g/dL (32.0-36.0); Mean Corpuscular Hemoglobin 24.9 pg (27.0-31.0); Mean Corpuscular Volume 75.7 fL (78.0-98.0); Mean Platelet Volume 8.7 fL (7.4-10.4); Platelet Count 158 10x3/uL (130-400); RBC Distribution Width 14.8 % (11.5-14.5)
[2024-05-14 05:23] LABS: Anion Gap 11 mmol/L (10-20); BUN (Urea Nitrogen) 17 mg/dL (8.4-25.7); Calc. Creatinine Clearance 36 mL/min (70-130); Calcium 8.7 mg/dL (7.8-10.44); Carbon Dioxide 23 mmol/L (23-31); Chloride 111 mmol/L (98-107); Estimated GFR 55; Glucose 87 mg/dL (83-110); Potassium 3.8 mmol/L (3.5-5.1); Sodium 141 mmol/L (136-145)
[2024-05-15 04:23] LABS: #Basophils Less than 0.03 10x3/uL (0.0-0.2); %Basophils 0.3 % (0.0-1.0); %Eosinophils 1.1 % (0.0-10.0); %Lymphocytes 22.6 % (21.0-51.0); %Monocytes 9.8 % (0.0-10.0); %Neutrophils 65.4 % (42.0-75.0); Hematocrit 29.7 % (42.0-52.0); Hemoglobin 9.6 g/dL (14.0-18.0); Mean Corpuscular HGB CONC 32.3 g/dL (32.0-36.0); Mean Corpuscular Hemoglobin 24.4 pg (27.0-31.0); Mean Corpuscular Volume 75.6 fL (78.0-98.0); Mean Platelet Volume 9.2 fL (7.4-10.4); Platelet Count 205 10x3/uL (130-400); RBC Distribution Width 14.8 % (11.5-14.5); Red Blood Cell (RBC) Count 3.93 mill/uL (4.70-6.10)
[2024-05-15 04:37] LABS: Anion Gap 14 mmol/L (10-20); BUN (Urea Nitrogen) 17 mg/dL (8.4-25.7); Calc. Creatinine Clearance 30 mL/min (70-130); Calcium 8.9 mg/dL (7.8-10.44); Carbon Dioxide 22 mmol/L (23-31); Chloride 108 mmol/L (98-107); Estimated GFR 44; Glucose 99 mg/dL (83-110); Potassium 3.6 mmol/L (3.5-5.1); Sodium 140 mmol/L (136-145)
[2024-05-16 04:25] LABS: #Basophils Less than 0.03 10x3/uL (0.0-0.2); %Basophils 0.2 % (0.0-1.0); %Eosinophils 0.3 % (0.0-10.0); %Lymphocytes 19.3 % (21.0-51.0); %Monocytes 6.5 % (0.0-10.0); %Neutrophils 73.5 % (42.0-75.0); Hematocrit 31.7 % (42.0-52.0); Hemoglobin 10.6 g/dL (14.0-18.0); Mean Corpuscular HGB CONC 33.4 g/dL (32.0-36.0); Mean Corpuscular Hemoglobin 24.9 pg (27.0-31.0); Mean Corpuscular Volume 74.6 fL (78.0-98.0); Platelet Count 224 10x3/uL (130-400); RBC Distribution Width 14.7 % (11.5-14.5); Red Blood Cell (RBC) Count 4.25 mill/uL (4.70-6.10)
[2024-05-16 04:37] LABS: Anion Gap 12 mmol/L (10-20); BUN (Urea Nitrogen) 19 mg/dL (8.4-25.7); Calc. Creatinine Clearance 31 mL/min (70-130); Calcium 8.9 mg/dL (7.8-10.44); Carbon Dioxide 21 mmol/L (23-31); Chloride 112 mmol/L (98-107); Estimated GFR 46; Glucose 100 mg/dL (83-110); Potassium 3.7 mmol/L (3.5-5.1); Sodium 141 mmol/L (136-145)
[2024-05-17 04:44] LABS: Anion Gap 11 mmol/L (10-20); BUN (Urea Nitrogen) 21 mg/dL (8.4-25.7); Calc. Creatinine Clearance 33 mL/min (70-130); Calcium 8.6 mg/dL (7.8-10.44); Carbon Dioxide 22 mmol/L (23-31); Chloride 112 mmol/L (98-107); Estimated GFR 50; Glucose 85 mg/dL (83-110); Potassium 3.7 mmol/L (3.5-5.1); Sodium 141 mmol/L (136-145)
[2024-05-17 04:45] LABS: #Basophils Less than 0.03 10x3/uL (0.0-0.2); %Basophils 0.2 % (0.0-1.0); %Eosinophils 0.4 % (0.0-10.0); %Lymphocytes 18.3 % (21.0-51.0); %Neutrophils 73.9 % (42.0-75.0); Hematocrit 29.9 % (42.0-52.0); Hemoglobin 9.8 g/dL (14.0-18.0); Mean Corpuscular HGB CONC 32.8 g/dL (32.0-36.0); Mean Corpuscular Hemoglobin 24.6 pg (27.0-31.0); Mean Corpuscular Volume 74.9 fL (78.0-98.0); Mean Platelet Volume 8.9 fL (7.4-10.4); Platelet Count 227 10x3/uL (130-400); RBC Distribution Width 14.7 % (11.5-14.5); Red Blood Cell (RBC) Count 3.99 mill/uL (4.70-6.10)
[2024-05-18 06:22] LABS: #Basophils Less than 0.03 10x3/uL (0.0-0.2); %Basophils 0.1 % (0.0-1.0); %Eosinophils 0.4 % (0.0-10.0); %Lymphocytes 20.4 % (21.0-51.0); %Monocytes 7.5 % (0.0-10.0); %Neutrophils 71.2 % (42.0-75.0); Hematocrit 30.2 % (42.0-52.0); Hemoglobin 9.9 g/dL (14.0-18.0); Mean Corpuscular HGB CONC 32.8 g/dL (32.0-36.0); Mean Corpuscular Hemoglobin 24.5 pg (27.0-31.0); Mean Corpuscular Volume 74.8 fL (78.0-98.0); Mean Platelet Volume 8.5 fL (7.4-10.4); Platelet Count 213 10x3/uL (130-400); Red Blood Cell (RBC) Count 4.04 mill/uL (4.70-6.10)
[2024-05-18 06:28] LABS: Anion Gap 11 mmol/L (10-20); BUN (Urea Nitrogen) 22 mg/dL (8.4-25.7); Calc. Creatinine Clearance 34 mL/min (70-130); Calcium 8.6 mg/dL (7.8-10.44); Carbon Dioxide 22 mmol/L (23-31); Chloride 110 mmol/L (98-107); Estimated GFR 53; Glucose 80 mg/dL (83-110); Potassium 3.6 mmol/L (3.5-5.1); Sodium 139 mmol/L (136-145)
[2024-05-18 12:56] VITALS: BP 132/76; TEMP 97.7
== END 2024-05-18 14:12 | DRG 690 ==
LOC: PCU 00:59 → 2NO 05-12 05:25 → OBSVTOIN 05-13 08:24
PROVIDERS: ADMIT Student in an Organized Health Care Education/Training Program; ATTEND Student in an Organized Health Care Education/Training Program
DX: N39.0 Urinary tract infection, site not specified (principal); I50.30 Unspecified diastolic (congestive) heart failure; I13.0 Hypertensive heart and chronic kidney disease with heart failure and stage 1 through stage 4 chronic kidney disease, or unspecified chronic kidney disease; R79.89 Other specified abnormal findings of blood chemistry; E78.5 Hyperlipidemia, unspecified; E86.0 Dehydration; I48.91 Unspecified atrial fibrillation; R94.4 Abnormal results of kidney function studies; E11.22 Type 2 diabetes mellitus with diabetic chronic kidney disease; B95.2 Enterococcus as the cause of diseases classified elsewhere; D50.9 Iron deficiency anemia, unspecified; F10.10 Alcohol abuse, uncomplicated; N18.31 Chronic kidney disease, stage 3a; Z79.899 Other long term (current) drug therapy; Z95.0 Presence of cardiac pacemaker; Z79.82 Long term (current) use of aspirin; Z79.84 Long term (current) use of oral hypoglycemic drugs; Z72.0 Tobacco use
CPT/HCPCS: 36415; 36416; 80048; 82728; 83540; 83550; 84466; 85025; 96372; 96374; 96376; G0378; J0696; J1650